=== PATIENT | male | born 1965 | race African-American/Black ===

== ENCOUNTER 2017-01-03 15:59 | Emergency (ER) | payer MEDICAID ==
[~2017-01-03 15:59] MED LIST: rocephin IV
== END 2017-01-03 17:50 | disposition left against medical advice (07) ==
LOC: ER 17:33
DX: Z53.21 Procedure and treatment not carried out due to patient leaving prior to being seen by health care provider (principal)

== ENCOUNTER 2017-01-05 13:20 | Emergency (ER) | payer MEDICAID ==
[~2017-01-05] VITALS: Ht 170.2 cm; Wt 86.0 kg
[2017-01-05 13:40] VITALS: BP 126/73
== END 2017-01-05 14:31 | disposition home or self-care (01) ==
LOC: ER 13:58
DX: L03.116 Cellulitis of left lower limb (principal)
CPT/HCPCS: 99281